=== PATIENT | female | born 1995 | race Two or more races ===

== ENCOUNTER 2017-05-20 09:14 | Emergency (ER) | payer SELFPAY ==
[~2017-05-20] VITALS: Ht 167.6 cm; Wt 63.0 kg
[2017-05-20 09:23] VITALS: BP 118/69
== END 2017-05-20 13:26 | disposition home or self-care (01) ==
LOC: ER 09:23
DX: L02.214 Cutaneous abscess of groin (principal)
CPT/HCPCS: 99283

== ENCOUNTER 2018-03-21 21:32 | Emergency (ER) | payer OTHER, MEDICAID ==
[~2018-03-21] VITALS: Ht 167.6 cm; Wt 62.0 kg
[2018-03-22 05:10] VITALS: BP 112/72
[2018-03-22 06:21] LABS: CLARITY URINE CLOUDY (CLEAR); COLOR URINE AMBER (YELLOW); KETONES URINE 1+ (NEGATIVE); NITRITE URINE NEGATIVE (NEGATIVE); OCCULT BLOOD URINE TRACE (NEGATIVE); PH URINE 5.5 (4.5-8.0); PROTEIN URINE 1+ (NEGATIVE); SPECIFIC GRAVITY URINE 1.036 (1.005-1.030)
[2018-03-22 06:22] LABS: LEUKOCYTE ESTERASE URINE 2+ (NEGATIVE); UROBILINOGEN URINE 0.2 E.U./dL (0.2-1.0)
== END 2018-03-22 05:14 | disposition home or self-care (01) ==
LOC: ER 21:32
DX: B37.3 Candidiasis of vulva and vagina (principal); N76.0 Acute vaginitis
CPT/HCPCS: 81025; 87210; 99283